=== PATIENT | female | born 1955 | race Caucasian/White ===

== ENCOUNTER 2024-07-21 13:56 | Emergency (ER) | payer MEDICARE, SELFPAY ==
[2024-07-21 13:57] VITALS: BP 123/71; PULSE 90; RESP 18; TEMP 36.6; O2SAT 99; BMI 26.9
[2024-07-21] MEDS: 0.9% Normal Saline (1000mL) 1,000 ML 999 ML IV (14:33)
--- NOTE | 2024-07-21 14:35 | RAD_ITS ---
EXAM: XR Chest, 1 View CLINICAL INDICATION: CHEST PAIN TECHNIQUE: Frontal view of the chest. COMPARISON: No relevant prior studies available. FINDINGS: LUNGS AND PLEURAL SPACES: Unremarkable. No consolidation. No pneumothorax. HEART: Unremarkable. No cardiomegaly. MEDIASTINUM: Unremarkable. Normal mediastinal contour. BONES/JOINTS: Unremarkable. No acute fracture. RAD/Chest 1 View (Portable) IMPRESSION: No acute cardiopulmonary process. Reading Location: [id number]
[2024-07-21 14:36] LABS: Absolute Neutrophil Count 4.1 X10^3/uL (2.0-7.7); Basophil# 0.08 X10^3/uL; Basophil% 1.3 % (0-1); Eosinophil# 0.16 X10^3/uL; Eosinophils% 2.6 % (0-5); Hematocrit 37.3 % (37-47); Hemoglobin 12.5 g/dL (12.0-15.0); Lymphocyte % 20.9 % (19-41); Mean Corp Hgb Conc 33.5 g/dL (32-36); Mean Corpuscular Hgb 29.5 pg (27.0-32.0); Monocyte# 0.55 X10^3/uL; Monocyte% 8.8 % (0-10); NRBC Flagged by Analyzer 0 % (0-5); Neutrophil # 4.12 X10^3/uL (2.7-7.7); Neutrophil % 66.1 % (47-70); Platelet Count 272 K/mm3 (150-450); RBC Distribution Width CV 12.3 % (11.6-14.6); RBC Distribution Width SD 39.4 fl (35.1-43.9); Red Blood Count 4.24 M/mm3 (4.2-5.4); White Blood Count 6.2 K/mm3 (4.4-11.0)
--- NOTE | 2024-07-21 14:44 | EX.ED.DYSGE1 ---
HPI <CESILIA Narvaez - Last Filed: 07/21/24 17:08> History of Present Illness Chief Complaint: Chest Pain Narrative Narrative: Patient is a 61-year-old female with history of anxiety, hypothyroidism, epilepsy. Patient is currently on Tegretol 3 times a day. Last seizure was [place] of 2022. Patient states that 2 days ago, she did some manual labor around the yard, it was greater than 75 degrees that day. Patient states she is unsure if she was hydrated, she developed a headache, weakness and this has been ongoing over the last 2 days. Today, the patient had some chest tightness, palpitations, is here for evaluation. She denies any diaphoresis, nausea or vomiting. She denies any significant cardiac history. [facility] <CESIILA Narvaez - Last Filed: 07/21/24 17:08> [facility] Medical History (Updated 07/21/24 @ 17:08 by CESILIA Narvaez) Hypercholesteremia Neuropathy Epilepsy Home Medications ?Medication ?Instructions ?Recorded ?Last Taken ?Type carbamazepine 200 mg tablet 200 mg PO TID 07/21/24 Unknown History duloxetine 60 mg capsule,delayed 60 mg PO DAILY 07/21/24 Unknown History release levothyroxine 50 mcg tablet 50 mcg PO DAILY 07/21/24 Unknown History (Synthroid) Allergy/AdvReac Type Severity Reaction Status Date / Time No Known Allergies Allergy Verified 07/21/24 13:57 Social History Smoking Status: Never smoker ROS <CESILIA Narvaez - Last Filed: 07/21/24 17:08> ROS ED ROS Narrative Constitutional: Negative for fever, chills, weight loss. Positive for weakness Eyes: Negative for vision loss, vision change, double vision ENT: Negative for any sore throat, ear pain, congestion Cardiovascular: Negative for any chest pain. Positive for tightness, palpitations Respiratory: Negative for any cough, sputum production, hemoptysis, dyspnea, dyspnea on exertion, orthopnea Gastrointestinal: Negative for any abdominal pain, nausea, vomiting, diarrhea, constipation, blood in stool, blood in vomit : Negative for any urinary frequency, dysuria, retention, blood in urine Muscle skeletal: Negative for any neck pain, back pain Neurological: Negative for any syncope, dizziness. Positive for headache Skin: Negative for any rashes, itching, abrasions, lacerations Psychiatric: Negative for any depression, anxiety, stress, suicidal ideation, homicidal ideation Hematologic: Negative for any excessive bruising, easy bleeding EXAM <CESILIA Narvaez - Last Filed: 07/21/24 17:08> Physical Exam Narrative Exam Narrative: Vital signs reviewed. HEET: Head normocephalic atraumatic, TMs clear bilaterally. Posterior pharynx is clear, moist mucous membranes. Nares clear bilaterally. Neck: Supple with no lymphadenopathy or tenderness. No signs of meningismus. Cardiac: Regular rate and rhythm no murmurs gallops or rubs, equal peripheral pulses bilaterally. Respiratory: Lungs clear to auscultation bilaterally. No chest tenderness. Abdomen: Soft, nontender, nondistended. No abdominal bruit or pulsatile masses. No hepatosplenomegaly Extremities: No peripheral edema, no signs of gross trauma or deformity. Active full range of motion of all extremities. Neuro: Cranial nerves II through XII intact, no focal neurological deficits. Skin: Clean dry and intact with no rash, purpura, petechiae, vesicles or pustules. Backs/flank: No CVA tenderness, no midline spinal tenderness, no deformity. Psych: Normal mood and affect. No SI, HI or acute psychosis. Const Vital Signs: 07/21/24 13:57 07/21/24 14:00 07/21/24 14:29 Temperature 97.9 F Temperature Source Temporal Pulse Rate 90 Respiratory Rate 18 Respiratory Effort Normal Blood Pressure 123/71 H Blood Pressure Mean 88 Pulse Ox 99 Oxygen Delivery Method Room Air Room Air 07/21/24 14:56 07/21/24 16:00 Temperature Temperature Source Pulse Rate 78 74 Respiratory Rate 16 23 H Respiratory Effort Blood Pressure 110/63 110/70 Blood Pressure Mean 78 83 Pulse Ox 98 94 Oxygen Delivery Method Room Air Room Air <Dr. Brooklynn Camarena DO - Last Filed: 07/21/24 15:25> Physical Exam Const Vital Signs: 07/21/24 13:57 07/21/24 14:00 07/21/24 14:29 Temperature 97.9 F Temperature Source Temporal Pulse Rate 90 Respiratory Rate 18 Respiratory Effort Normal Blood Pressure 123/71 H Blood Pressure Mean 88 Pulse Ox 99 Oxygen Delivery Method Room Air Room Air 07/21/24 14:56 07/21/24 16:00 Temperature Temperature Source Pulse Rate 78 74 Respiratory Rate 16 23 H Respiratory Effort Blood Pressure 110/63 110/70 Blood Pressure Mean 78 83 Pulse Ox 98 94 Oxygen Delivery Method Room Air Room Air [facility] <CESILIA Narvaez - Last Filed: 07/21/24 17:08> [facility] Lab Data Labs: Laboratory Results - last 24 hr 07/21/24 07/21/24 07/21/24 14:06 15:20 16:04 WBC 6.2 RBC 4.24 Hgb 12.5 Hct 37.3 MCV 88.0 MCH 29.5 MCHC 33.5 RDW Std Deviation 39.4 RDW Coeff of Ronnie 12.3 Plt Count 272 MPV 9.0 Immature Gran % (Auto) 0.300 Neut % (Auto) 66.1 Lymph % (Auto) 20.9 [place] % (Auto) 8.8 Eos % (Auto) 2.6 Baso % (Auto) 1.3 H Absolute Neuts (auto) 4.1 Absolute Lymphs (auto) 1.30 Nucleated RBC % 0 Sodium 138 Potassium 4.0 Chloride 103 Carbon Dioxide 23.3 Anion Gap 12 BUN 15 Creatinine 0.67 L Estim Creat Clear Calc 60.78 Est GFR (MDRD) Non-Af 95 BUN/Creatinine Ratio 22.4 H Glucose 122 H Calcium 9.2 Total Creatine Kinase 52 Troponin T High Sens < 6 Troponin T Hi Sens 2 Hr < 6 Urine Color Yellow Urine Clarity Clear Urine pH 7.0 Ur Specific [place] 1.010 Urine Protein 15 H Urine Glucose (UA) Normal Urine Ketones Negative Urine Occult Blood Negative Urine Nitrite Negative Urine Bilirubin Negative Urine Urobilinogen Normal Ur Leukocyte Esterase Negative Urine RBC 0 SEEN Urine WBC 0 SEEN Ur Squamous Epith Cells 0 SEEN Urine Bacteria 0 SEEN Urine Mucus 0 SEEN Radiography Diagnostic Testing: Clinical Impression(s) from Imaging Studies Chest X-Ray 07/21/24 14:35 IMPRESSION: No acute cardiopulmonary process. Reading Location: [facility] EKG EKG shows a rate of 75 bpm: Attestation: I personally reviewed and interpreted this EKG as follows: Interpretation: Sinus Rhythm Comments: Normal sinus rhythm with sinus arrhythmia, rate 75 bpm, DE interval 162 ms, QRS duration 92 ms, no acute ST elevation, no acute infarct Treatment and Re-Evaluation :: Differential diagnosis includes however is not limited to: ACS, NV, community-acquired pneumonia, COVID-19 flu and RSV, dehydration, heatstroke, rhabdomyolysis Patient appears generally well, vital signs are stable, patient is nontoxic-appearing. Presenting to the [facility] apartment for palpitations, generalized feeling weakness, nausea this been ongoing for the last 2 to 3 days. Patient will receive a full cardiac workup. As well as basic laboratory values, IV fluid, urinalysis. All radiologic examinations were read, reviewed by the emergency department attending. From these reads, a plan of care will be put in place. Patient's CBC was unremarkable. Patient's chemistries were negative patient's total creatinine kinase was negative. Troponin was less than 6 was negative. Patient received repeat troponin. Repeat troponin was negative. Patient's urinalysis was negative for infection. At this time, patient does feel better after IV fluids. Patient will be discharged home. No evidence of ACS or NV. Happy the plan of care, stable for discharge. Differential diagnosis includes however is not limited to: ACS, NV, community-acquired pneumonia, COVID-19 flu and RSV, dehydration, heatstroke, rhabdomyolysis Patient appears generally well, vital signs are stable, patient is nontoxic-appearing. [facility], generalized feeling weakness, nausea this been ongoing for the last 2 to 3 days. Patient will receive a full cardiac workup. As well as basic laboratory values, IV fluid, urinalysis. All radiologic examinations were read, reviewed by the emergency department attending. From these reads, a plan of care will be put in place. Patient evaluated for chest pain that started today. She has had more as a pressure in the left side of her chest. Does not radiate. Worse with direct palpation. Denies any shortness of breath. Notes over the past few days after doing yard work a few days ago and raking which is unusual for him. She notes since then she has been feeling foggy and not quite herself. She was last night she had an episode of dysuria which is abnormal for her. She states she has not a UTI in years. Has been having decreased appetite. Came in for further evaluation. States she is been try to drink more fluids. EKG shows normal sinus rhythm no acute ischemic changes. Chest x-ray viewed by myself as well as radiology does not show any acute process. I will check for signs of dehydration, ACS, electrolyte derangement, RONALD and urinary tract infection. Will obtain chest x-ray to rule out pneumonia. Anticipate if workup is negative can be discharged home. Is given IV fluids in the emergency room. Anticipate if delta high-sensitivity troponin is normal patient be discharged home. ? Antibiotics if Urinalysis consistent with UTI. <Dr. Brooklynn Camarena, DO - Last Filed: 07/21/24 15:25> [facility] Lab Data Labs: Laboratory Results - last 24 hr 07/21/24 07/21/24 07/21/24 14:06 15:20 16:04 WBC 6.2 RBC 4.24 Hgb 12.5 Hct 37.3 MCV 88.0 MCH 29.5 MCHC 33.5 RDW Std Deviation 39.4 RDW Coeff of Ronnie 12.3 Plt Count 272 MPV 9.0 Immature Gran % (Auto) 0.300 Neut % (Auto) 66.1 Lymph % (Auto) 20.9 [place] % (Auto) 8.8 Eos % (Auto) 2.6 Baso % (Auto) 1.3 H Absolute Neuts (auto) 4.1 Absolute Lymphs (auto) 1.30 Nucleated RBC % 0 Sodium 138 Potassium 4.0 Chloride 103 Carbon Dioxide 23.3 Anion Gap 12 BUN 15 Creatinine 0.67 L Estim Creat Clear Calc 60.78 Est GFR (MDRD) Non-Af 95 BUN/Creatinine Ratio 22.4 H Glucose 122 H Calcium 9.2 Total Creatine Kinase 52 Troponin T High Sens < 6 Troponin T Hi Sens 2 Hr < 6 Urine Color Yellow Urine Clarity Clear Urine pH 7.0 Ur Specific [place] 1.010 Urine Protein 15 H Urine Glucose (UA) Normal Urine Ketones Negative Urine Occult Blood Negative Urine Nitrite Negative Urine Bilirubin Negative Urine Urobilinogen Normal Ur Leukocyte Esterase Negative Urine RBC 0 SEEN Urine WBC 0 SEEN Ur Squamous Epith Cells 0 SEEN Urine Bacteria 0 SEEN Urine Mucus 0 SEEN Radiography Diagnostic Testing: Clinical Impression(s) from Imaging Studies Chest X-Ray 07/21/24 14:35 IMPRESSION: No acute cardiopulmonary process. Reading Location: [facility] Treatment and Re-Evaluation :: Differential diagnosis includes however is not limited to: ACS, NV, community-acquired pneumonia, COVID-19 flu and RSV, dehydration, heatstroke, rhabdomyolysis Patient appears generally well, vital signs are stable, patient is nontoxic-appearing. Presenting to the [facility] apartment for palpitations, generalized feeling weakness, nausea this been ongoing for the last 2 to 3 days. Patient will receive a full cardiac workup. As well as basic laboratory values, IV fluid, urinalysis. All radiologic examinations were read, reviewed by the emergency department attending. From these reads, a plan of care will be put in place. Patient's CBC was unremarkable. Patient's chemistries were negative patient's total creatinine kinase was negative. Troponin was less than 6 was negative. Patient received repeat troponin. Differential diagnosis includes however is not limited to: ACS, NV, community-acquired pneumonia, COVID-19 flu and RSV, dehydration, heatstroke, rhabdomyolysis Patient appears generally well, vital signs are stable, patient is nontoxic-appearing. Presenting to the [facility] apartment for palpitations, generalized feeling weakness, nausea this been ongoing for the last 2 to 3 days. Patient will receive a full cardiac workup. As well as basic laboratory values, IV fluid, urinalysis. All radiologic examinations were read, reviewed by the emergency department attending. From these reads, a plan of care will be put in place. Patient evaluated for chest pain that started today. She has had more as a pressure in the left side of her chest. Does not radiate. Worse with direct palpation. Denies any shortness of breath. Notes over the past few days after doing yard work a few days ago and raking which is unusual for him. She notes since then she has been feeling foggy and not quite herself. She was last night she had an episode of dysuria which is abnormal for her. She states she has not a UTI in years. Has been having decreased appetite. Came in for further evaluation. States she is been try to drink more fluids. EKG shows normal sinus rhythm no acute ischemic changes. Chest x-ray viewed by myself as well as radiology does not show any acute process. I will check for signs of dehydration, ACS, electrolyte derangement, RONALD and urinary tract infection. Will obtain chest x-ray to rule out pneumonia. Anticipate if workup is negative can be discharged home. Is given IV fluids in the emergency room. Anticipate if delta high-sensitivity troponin is normal patient be discharged home. ? Antibiotics if Urinalysis consistent with UTI. Discharge Plan Triage Chief Complaint: Chest Pain ED Midlevel Provider: Chuck Olivier ED Provider: Brooklynn Camarena Dx/Rx/DC Orders Clinical Impression: Acute dehydration, Chest pain Instructions: ED Chest Pain, Uncertain Cause, ED Dehydration (Adult) Prescriptions: No Action carbamazepine 200 mg tablet 200 mg PO TID levothyroxine [Synthroid] 50 mcg tablet 50 mcg PO DAILY duloxetine 60 mg capsule,delayed release(DR/EC) 60 mg PO DAILY Primary Care Provider: Cooper Curiel Referrals: Care Physician,No Primary [Non-Staff] - Activity Restrictions/Additional Instructions: You had a negative chest pain workup today in the emergency department. Continue to follow-up. Maintain hydration. Print Language: [place] Disposition Disposition: Home, Self Care
[2024-07-21 14:56] VITALS: BP 110/63; PULSE 78; RESP 16; O2SAT 98
[2024-07-21 15:00] LABS: Anion Gap 12 (5-15); BUN 15 mg/dL (4-19); BUN/Creat Ratio 22.4 RATIO (10-20); CPK Total, Creatine Kinase 52 U/L (24-195); Calcium,Total 9.2 mg/dL (7.6-11.0); Carbon Dioxide 23.3 mmol/L (21.0-32.0); Chloride 103 mmol/L (98-108); Creatinine, Serum 0.67 mg/dL (0.70-1.20); EST Glomerular Filtration Rate 95 (>60); Estimated Creatinine Clearance 60.78 ml/min (50-250); Glucose 122 mg/dL (70-99); Sodium Level 138 mmol/L (133-145); Troponin T High Sensitivity < 6 ng/L (<=14)
[2024-07-21 15:32] LABS: Bacteria 0 SEEN /hpf (None Seen); Mucous, Urine 0 SEEN /hpf (<or=2+); Red Blood Cells-Urine 0 SEEN /hpf (0-5); Squamous Epithelial Cells - UA 0 SEEN /hpf (5-10); White Blood Cells 0 SEEN /hpf (0-5)
[2024-07-21 15:50] LABS: Color, Urine Yellow (Yellow); Glucose, Dipstick Normal (Normal); Ketone-Dipstick Negative (Negative); Leukocyte Esterase-Dipstick Negative /ul (Negative); Nitrite-Dipstick Negative (Negative); Occult Blood-Urine Negative /ul (Negative); Protein-Dipstick 15 mg/dl (Negative); Urine Bilirubin Dipstick Negative (Negative); Urine Clarity Clear (Clear); Urine Urobilinogen Normal (Normal)
[2024-07-21 16:00] VITALS: BP 110/70; PULSE 74; RESP 23; O2SAT 94
[2024-07-21 16:34] LABS: Troponin T High Sens 2 HR < 6 ng/L (<=14)
[2024-07-21 17:00] VITALS: BP 100/67; PULSE 66; RESP 14; O2SAT 97
[2024-07-21 17:10] VITALS: BP 100/67; PULSE 66; RESP 14; TEMP 36.3; O2SAT 97
== END 2024-07-21 17:13 | disposition home or self-care (01) ==
PROVIDERS: Nurse Practitioner; Emergency Provider Emergency Medicine; PCP Family Medicine; Visit Provider Emergency Medicine
DX: R07.89 Other chest pain (principal); G40.909 Epilepsy, unspecified, not intractable, without status epilepticus; E86.0 Dehydration; Z79.899 Other long term (current) drug therapy
CPT/HCPCS: 71045; 80048; 81001; 82550; 84484; 85025; 93005; 96360; 99284; A4216